=== PATIENT | female | born 1955 | race Caucasian/White ===

== ENCOUNTER → 2017-11-07 | Outpatient (CLI) | payer OTHER, BC ==
[~2017-11-07] MED LIST: ACETAMINOPHEN325 M1 PO; ASPIR 8181 M1 PO; BACTRIM DS TAB1 EACH PO; BD ULTRA-FINE1 EAC2 MC; CINNAMON500 MG PO; COZAAR 50 MG TA50 M2 PO; DITROPAN XL10 M1 PO; FISH OIL 1,001000 M2 PO; FLONASE 0.05%50 MCG NASAL; FLOVENT HFA 1110 MCG INH; FOLIC ACID1 MG PO; GABAPENTIN; GLUCOPHAGE1000 MG PO; GLYBURIDE 2.52.5 MG PO; GLYBURIDE 5 MG T5 M1 PO; K-DUR10 ME1 PO; K-DUR10 MEQ PO; KEFLEX500 MG PO; LANTUS SUBQ; LEVSIN0.125 MG PO; LEXAPRO 10 MG T10 MG PO; LEXAPRO20 MG PO; LISINOPRIL-HCT1 EACH PO; NEURONTIN 300300 M1 PO; NEURONTIN300 MG PO; NEXIUM40 MG PO; NORCO 5-325 TA1 EACH PO; NORVASC5 MG PO; OMACOR1 G1 PO; OXYBUTYNIN 5 MG5 M2 PO; PRENATAL; PRENATAL PO; PROAIR HFA8.5 GM INH; REQUIP4 MG PO; RESTORIL15 MG PO; SIMVASTATIN40 MG PO; SULFACETAMIDE 115 M1 OP; TEGRETOL200 MG PO; TESSALON PERLE100 MG PO; TRIGLIDE160 MG PO; ULTRAM 50MG TAB50 MG PO; VICTOZA0.6 MG/0.1 SUBQ; VITAMIN D400 UNI1 PO; VITAMIN E400 UNIT PO; ZETIA10 MG PO; ZYRTEC10 MG PO; [UNRECOGNIZED DRUG - OTHER] MC
== END ==
LOC: M.RAD 11-06 11:30
DX: Z12.31 Encounter for screening mammogram for malignant neoplasm of breast (principal)

== ENCOUNTER 2019-10-03 13:06 | Emergency (ER) | payer BC, OTHER ==
[~2019-10-03] VITALS: Ht 165.1 cm; Wt 81.7 kg
[~2019-10-03 13:06] MED LIST changes: -REQUIP4 MG PO; +REQUIP5 MG PO
[2019-10-03] MEDS ORDERED: NAPROSYN500 M1 PO (16:18)
[2019-10-03] MEDS ORDERED: FLEXERIL PO (16:18)
[2019-10-03 16:29] VITALS: BP 131/77
[2019-10-31] MEDS ORDERED: ZETIA10 MG PO (09:17)
[2019-10-31] MEDS ORDERED: ONDANSETRON HCL4 M2 PO (09:19)
[2019-10-31] MEDS ORDERED: BASAGLAR K100 UNIT/1 (09:21)
[2019-10-31] MEDS ORDERED: GLIPIZIDE 10 MG10 MG PO (09:22)
[2019-10-31] MEDS ORDERED: NORCO 5-325 TA1 EAC1 PO (09:24)
[2019-10-31] MEDS ORDERED: MELOXICAM15 MG PO (09:26)
[2019-10-31] MEDS ORDERED: LEVEMIR100 UNIT/1 (09:29)
[2019-10-31] MEDS ORDERED: VICTOZA0.6 MG/0.1 SUBQ (09:31)
[2019-10-31] MEDS ORDERED: KLOR-CON 10 ER10 MEQ PO (09:32)
[2019-10-31] MEDS ORDERED: VITAMIN D310000 UNIT PO (09:35)
[2019-10-31] MEDS ORDERED: HYDROCHLOROTHIA25 M2 PO (09:37)
[2019-10-31] MEDS ORDERED: COLY-MYCIN S OT10 ML OTIC (09:38)
[2019-10-31] MEDS ORDERED: MEDROLDOSEPACK PO (10:18)
== END 2019-10-03 16:30 | disposition home or self-care (01) ==
LOC: M.ERS 13:06
DX: S16.1XXA Strain of muscle, fascia and tendon at neck level, initial encounter (principal); S39.012A Strain of muscle, fascia and tendon of lower back, initial encounter; M25.511 Pain in right shoulder; I10 Essential (primary) hypertension; E11.9 Type 2 diabetes mellitus without complications; F17.210 Nicotine dependence, cigarettes, uncomplicated; Z88.1 Allergy status to other antibiotic agents; Z90.710 Acquired absence of both cervix and uterus; Z90.89 Acquired absence of other organs; V89.2XXA Person injured in unspecified motor-vehicle accident, traffic, initial encounter; Y93.89 Activity, other specified; Y92.89 Other specified places as the place of occurrence of the external cause; Y99.8 Other external cause status

== ENCOUNTER → 2019-10-31 | Outpatient (CLI) | payer BC, OTHER ==
[~2019-10-31] MED LIST changes: +BASAGLAR K100 UNIT/1; +COLY-MYCIN S OT10 ML OTIC; +FLEXERIL PO; +GLIPIZIDE 10 MG10 MG PO; +HYDROCHLOROTHIA25 M2 PO; +KLOR-CON 10 ER10 MEQ PO; +LEVEMIR100 UNIT/1; +MEDROLDOSEPACK PO; +MELOXICAM15 MG PO; +NAPROSYN500 M1 PO; +NORCO 5-325 TA1 EAC1 PO; +ONDANSETRON HCL4 M2 PO; +VITAMIN D310000 UNIT PO
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
== END ==
LOC: M.PC 10-29 10:30
DX: M54.16 Radiculopathy, lumbar region (principal); Z88.8 Allergy status to other drugs, medicaments and biological substances; Z79.899 Other long term (current) drug therapy

== ENCOUNTER → 2019-11-14 | Outpatient (CLI) | payer BC, OTHER ==
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
== END | disposition home or self-care (01) ==
LOC: M.PC 08:04
DX: M54.16 Radiculopathy, lumbar region (principal); G89.29 Other chronic pain; I10 Essential (primary) hypertension; E11.9 Type 2 diabetes mellitus without complications; E07.9 Disorder of thyroid, unspecified; M19.90 Unspecified osteoarthritis, unspecified site; J44.9 Chronic obstructive pulmonary disease, unspecified; Z98.890 Other specified postprocedural states; Z79.899 Other long term (current) drug therapy; Z88.8 Allergy status to other drugs, medicaments and biological substances; Z79.4 Long term (current) use of insulin

== ENCOUNTER → 2019-12-10 | Outpatient (CLI) | payer OTHER | LOC: M.RAD 13:10 | DX: Z12.31 Encounter for screening mammogram for malignant neoplasm of breast (principal) ==

== ENCOUNTER → 2020-12-31 | Outpatient (CLI) | payer OTHER | LOC: M.RAD 12-10 13:00 | PROVIDERS: ATTEND Orthopaedic Surgery | DX: Z12.31 Encounter for screening mammogram for malignant neoplasm of breast (principal) ==